=== PATIENT | female | born 2000 | race Caucasian/White ===

== ENCOUNTER 2024-01-08 16:03 | Emergency (ER) | payer MEDICAID, SELFPAY ==
--- NOTE | 2024-01-08 16:00 | DI.RAD_ITS ---
Exam(s) XR ELBOW LT COMPLETE EXAM: XR ELBOW LT COMPLETE CLINICAL HISTORY: Left elbow pain. TECHNIQUE: 2D digital imaging was performed. COMPARISON: No exams were available for comparison FINDINGS: 3 views No evidence of fracture or joint effusion. No swelling of the olecranon bursa. Radial head and neck appear unremarkable. Epicondyles unremarkable. IMPRESSION: No acute osseous findings in the elbow. DATA REPOSITORY: RADIATION DOSE DELIVERED:
[2024-01-08 16:06] VITALS: BP 133/99; PULSE 108; RESP 18; TEMP 37.1; O2SAT 97
--- NOTE | 2024-01-08 16:08 | ED.GENADUL_ITS ---
Discharge Plan Disposition Patient Disposition: Home Discharge Details Clinical Impression: Left elbow pain Primary Care Provider: None,None ED Provider: Rodriguez Tong Home Meds and New Rx's Prescriptions: No Action No Known Home Meds Discharge Instructions Additional Instructions: You are seen in the emergency department for your left elbow pain. Your x-ray showed no sign of any fractures nor dislocations. Please use this sling for the next 24 hours to improve your pain. Please follow-up with your primary care provider next week as needed. Please return to the emergency department if you develop any discoloration of your hand or any new or any loss of sensation in your hand. Please do not wear your sling for more than 1 day. You most likely have a sprain. For your pain please take medications as follows: 1. Take acetaminophen (Tylenol), 1,000 mg (two 500 mg tabs) every 6 hours [2. Take ibuprofen (Advil), 400 mg every 6 hours.] Discharge Data Discharge Date/Time-TO BE ENTERED AT DEPARTURE: 01/08/24 18:02 HPI General Date/Time Provider Initiated Documentation: 01/08/24 16:08 . HPI Narrative: MDM This is an overall very well-appearing normothermic and initially tachycardic 23-year-old sknsj-rlfz-uduhbpat female with left elbow pain following fall with no obvious signs of dislocation and reassuring, though limited range of motion, with x-rays not consistent with dislocation nor fracture for which she will receive outpatient follow-up on 24 hours of sling. Given the patient is able to flex her bicep and has no Cy's sign I am not suspicious for biceps tendon rupture. Furthermore no swelling or tenderness over antecubital fossa. Left hand warm well-perfused so I am not concerned for any critical limb ischemia so I do not feel the patient requires a CTA. No recent PICC line nor history of IV drug use so doubt upper extremity DVT. No pain out of proportion to suggest necrotizing soft tissue infection. Good range of motion in left shoulder so I am not concerned for shoulder dislocation. No rash to left elbow to suggest zoster. Given reassuring range of motion and plain films negative for any acute osseous abnormalities I advised patient that we would place her left upper extremity in a splint for 24 hours. I advised that she should discontinue using the splint tomorrow as he did not want to introduce iatrogenic complications from unnecessary immobilization. I advised scheduled ibuprofen and acetaminophen along with ice 20 minutes on 2 nights off the next 24 hours. I advised ED return for any color changes in her hand or any decreases in her range of motion. Otherwise I advised PCP follow-up as needed next week. Patient understood her return indications and was discharged with empiric trial of expectant outpatient management. Her tachycardia resolved in the ED. HPI This is a uzder-[id number]-rrekmusi previously healthy 23-year-old female arriving to the emergency department via private vehicle in setting of left elbow pain. Patient took no medications prior to arrival. She reportedly lost her balance that she was working to clear some land. She tripped over a stump and put her left outstretched arm out to break her fall. She subsequently developed pain in her left elbow. She did not hit her head. She has no pain in her left wrist. No pain in her left hand. No pain over the left forearm nor in her left shoulder. No prior surgeries to her left elbow in the past. Exam General: Well-appearing in no acute distress speaking in complete sentences. Head: Normocephalic, atraumatic. Eye: Extraocular eye movements intact. No conjunctival injection. No scleral icterus. Ear, nose, mouth, throat: Grossly normal inspection. Normal voice, handling secretions normally. Neck: Trachea midline. Cardiovascular: Well-perfused distal extremities. Respiratory: Nonlabored respiration. Gastrointestinal: Nondistended abdomen. Musculoskeletal: Left upper extremity no obvious deformities ecchymosis or lacerations. Left shoulder nontender. Patient is able to flex her left shoulder approximately 90 degrees and extend her left shoulder approximately 5 degrees. She is able to abduct her left shoulder approximately 90 degrees. No clavicular tenderness. No proximal humerus tenderness. No antecubital fossa tenderness on the left. Left elbow tenderness in the posterior aspect. Patient is able to extend her elbow to approximately 170 degrees. She can flex her left elbow to approximately 90 degrees. She can fully pronate and supinate her left forearm. Nontender left wrist. Left hand warm well-perfused 2+ left radial pulse. Cap refill less than 2 seconds in left fingertips. Intact sensation motor function left hand across the radial, median, and ulnar nerve distributions. Skin: Normal for age and race, grossly normal temperature and turgor. No acute rash. Neurologic: Alert and appropriate, no apparent acute deficits. Psychiatric: Mood and manner are appropriate. Grooming and personal hygiene are appropriate. Related Data Home Medications Medication Instructions Recorded Confirmed Unknown [No Known Home Meds] 01/08/24 01/08/24 Allergies Allergy/AdvReac Type Severity Reaction Status Date / Time No Known Allergies Allergy Unverified 01/08/24 16:09 General Stated Complaint: Orthopedic NANCY: 4 Course Vital Signs Vital signs: Vital Signs Temperature 37.1 C 01/08/24 16:06 Pulse 108 H 01/08/24 16:06 Respiratory Rate 18 01/08/24 16:06 Blood Pressure 133/99 H 01/08/24 16:06 Pulse Oximetry 97 01/08/24 16:06 Temperature 37.1 C 01/08/24 16:06 Temperature Source Skin 01/08/24 16:06 Pulse 108 H 01/08/24 16:06 Respiratory Rate 18 01/08/24 16:06 Blood Pressure 133/99 H 01/08/24 16:06 Blood Pressure Position Sitting 01/08/24 16:06 Pulse Oximetry 97 01/08/24 16:06 Oxygen Delivery Method Room Air 01/08/24 16:06 Oxygen Flow Rate 0 01/08/24 16:06 Medical Decision Making Quality:SDOH Health Related Social Needs: No Data to Display PFSH All Active Problems (Updated 01/08/24 @ 17:31 by Rodriguez Tong MD) Left elbow pain (Acute) Social History Smoking/Tobacco Use Status: Current every day Tobacco Type: e-cigarettes Smoking risk assessment performed?: Yes Alcohol Intake: current Alcohol Intake frequency: a few times a week Substance use type: does not use
[2024-01-08] MEDS: Ibuprofen 600 MG TAB PO (16:38)
[2024-01-08] MEDS: Acetaminophen 500 MG TAB 1000 MG PO (16:38)
[2024-01-08 16:56] VITALS: PULSE 92
[2024-01-08 17:36] VITALS: BP 142/87; PULSE 88; RESP 16; O2SAT 99
== END 2024-01-08 18:02 | disposition home or self-care (01) ==
PROVIDERS: Emergency Provider Emergency Medicine
DX: M25.522 Pain in left elbow (principal); F17.290 Nicotine dependence, other tobacco product, uncomplicated; W01.0XXA Fall on same level from slipping, tripping and stumbling without subsequent striking against object, initial encounter; Y93.H2 Activity, gardening and landscaping; Y92.017 Garden or yard in single-family (private) house as the place of occurrence of the external cause
CPT/HCPCS: 99283; 73080